=== PATIENT | male | born 1950 | race Caucasian/White ===

== ENCOUNTER 2018-02-02 06:52 | Inpatient (IN) | payer MEDICARE, BC ==
[~2018-02-02] VITALS: Ht 180.3 cm; Wt 93.3 kg
[~2018-02-02 06:52] MED LIST: BACL10TA PO; CARV6.2551 PO; DICL-176 PO; DIGO0.1262 PO; GLIP-116 PO; METF-929 PO; RIVA20TA PO
[2018-02-02] MEDS ORDERED: ceFAZolin 1GM 2 GM in D5W 5% 100 ML IV ONE (07:15)
[2018-02-02] MEDS ORDERED: ACETAMINOPHEN IV 1000 MG/100ML (10MG/ML) IV ONE (07:15)
[2018-02-02] MEDS ORDERED: CELECOXIB 100 MG CAP PO ONE (07:15)
[2018-02-02] MEDS ORDERED: PREGABALIN CAPSULE 75 MG CAP PO ONE (07:15)
[2018-02-02] MEDS ORDERED: ceFAZolin 1GM/50ML 100 ML IV ONE (07:42)
[2018-02-02] MEDS ORDERED: BUPIVACAINE HCL 0.25% P/F 10 ML VIAL ONE (09:03)
[2018-02-02] MEDS ORDERED: TRANEXAMIC ACID 10 ML ONE ×2 (09:03→11:06)
[2018-02-02] MEDS ORDERED: MORPHINE SULF(PF) 0.5MG/ML 10ML VIAL ONE ×2 (09:04→09:17)
[2018-02-02] MEDS ORDERED: KETOROLAC TROMETH 30 MG/ML 1ML VIAL ONE (09:06)
[2018-02-02] MEDS ORDERED: VANCOMYCIN HCL 1000 MG VL ONE (09:07)
[2018-02-02] MEDS ORDERED: TETRACAINE 1% INJ 2 ML VIAL IJ ONE (09:16)
[2018-02-02] MEDS ORDERED: fentaNYL CITRATE 100 MCG/2 ML VL ONE (09:17)
[2018-02-02] MEDS ORDERED: MIDAZOLAM HCL 1MG/1ML-2 ML VIAL ONE (09:18)
[2018-02-02] MEDS ORDERED: ROPIVACAINE 0.5% (5MG/ML) 20ML AMPULE IJ ONE (11:27)
[2018-02-02] MEDS ORDERED: LIDOCAINE W/ EPINEPHRINE 2% INJ 20ML VIAL ONE (11:27)
[2018-02-02] MEDS ORDERED: ONDANSETRON HCL 4 MG/2 ML VIAL IV PRN (12:00)
[2018-02-02] MEDS ORDERED: ACETAMINOPHEN 325 MG TAB PO PRN (12:00)
[2018-02-02] MEDS ORDERED: hydrALAZINE HCL 20 MG/ML VL IV PRN (12:00)
[2018-02-02] MEDS ORDERED: NALOXONE HCL 0.4 MG/ML VIAL IV PRN (12:00)
[2018-02-02] MEDS ORDERED: OXYCODONE W/ ACETAMINOPHEN 5/325MG TABLET PO PRN (12:00)
[2018-02-02] MEDS ORDERED: BISACODYL 5 MG EC TAB PO PRN (12:00)
[2018-02-02] MEDS ORDERED: traMADol HCL 50 MG TAB PO PRN (12:00)
[2018-02-02] MEDS ORDERED: MORPHINE SULF INJ 2 MG/ML SYRINGE 1ML IV PRN (12:00)
[2018-02-02] MEDS ORDERED: diphenhdrAMINE HCL 50 MG/1 ML VL IV PRN (12:00)
[2018-02-02] MEDS ORDERED: ONDANSETRON HCL 4 MG/2 ML VIAL IV ONE (12:00)
[2018-02-02] MEDS ORDERED: MORPHINE SULFATE 4 MG/ML SYR/VIAL IV PRN (12:00)
[2018-02-02] MEDS ORDERED: ePHEDrine SULFATE 50 MG/ML AMP IV PRN (12:00)
[2018-02-02] MEDS ORDERED: NITROGLYCERIN 0.4 MG SL TAB SL PRN (12:00)
[2018-02-02] MEDS ORDERED: DEXTROSE (50%) 50ML SYRG IV PRN (12:00)
[2018-02-02] MEDS: KETOROLAC TROMETH 30 MG/ML 1ML VIAL IV SCH ×2 (14:00→21:20)
[2018-02-02] MEDS: BACLOFEN 10 MG TAB PO SCH ×2 (14:00→21:22)
[2018-02-02] MEDS: LACTATED RINGER'S 1,000 ML IV SCH ×2 (14:19→21:59)
[2018-02-02] MEDS: SODIUM CHLOR 0.9% PF (SALINE LOCK) 10ML VIAL/SYR IV SCH ×2 (14:20→23:12)
[2018-02-02 14:21] VITALS: BP 110/71
[2018-02-02] MEDS: ONDANSETRON HCL 4 MG/2 ML VIAL IV PRN ×2 (14:26→21:19)
[2018-02-02 17:00] VITALS: BP 123/70
[2018-02-02] MEDS ORDERED: ACCU-CHEK COMFORT CURVE STRIP VI SCH (17:00)
[2018-02-02] MEDS: ACCU-CHEK COMFORT CURVE STRIP VI SCH ×2 (17:27→23:15)
[2018-02-02] MEDS: ceFAZolin 1GM 2 GM in D5W 5% 100 ML IV SCH ×2 (17:52→23:16)
[2018-02-02] MEDS: RIVAROXABAN 20 MG TAB PO SCH (17:52)
[2018-02-02] MEDS: glipiZIDE 5 MG TAB PO SCH (17:52)
[2018-02-02] MEDS: InsuLIN REG 1unit/0.01ml Soln (100units/ml) SC SCH ×2 (17:52→23:15)
[2018-02-02 20:00] VITALS: BP 127/79
[2018-02-02] MEDS: DOCUSATE SOD 100 MG CAP PO SCH (21:21)
[2018-02-02] MEDS: CARVEDILOL 3.125 MG TAB PO SCH (21:21)
[2018-02-02] MEDS: DIGOXIN 0.125 MG TAB PO SCH (21:22)
[2018-02-02] MEDS: metFORMIN HYDROCHLORIDE 500 MG TAB PO SCH (21:23)
[2018-02-02] MEDS ORDERED: PATIENTS OWN MEDICATION (Glipizide 10 MG) PO SCH (22:00)
[2018-02-02] MEDS ORDERED: METFORMIN HCL 1000 MG PO SCH (22:00)
[2018-02-02] MEDS ORDERED: PATIENTS OWN MEDICATION (Carvedilol 6.25 MG) PO SCH (22:00)
[2018-02-02 22:14] VITALS: BP 127/79
[2018-02-02] MEDS: oxyCODONE ER 10 MG TAB PO SCH ×2 (23:15→23:21)
[2018-02-03] VITALS (7 sets, daily range): BP systolic 85–125; BP diastolic 54–86
[2018-02-03] MEDS: ONDANSETRON HCL 4 MG/2 ML VIAL IV PRN (05:22)
[2018-02-03] MEDS: glipiZIDE 5 MG TAB PO SCH ×2 (06:21→17:35)
[2018-02-03] MEDS: BACLOFEN 10 MG TAB PO SCH ×3 (06:21→21:42)
[2018-02-03] MEDS: KETOROLAC TROMETH 30 MG/ML 1ML VIAL IV SCH ×3 (06:21→21:41)
[2018-02-03] MEDS: SODIUM CHLOR 0.9% PF (SALINE LOCK) 10ML VIAL/SYR IV SCH ×3 (06:31→22:27)
[2018-02-03] MEDS: InsuLIN REG 1unit/0.01ml Soln (100units/ml) SC SCH ×4 (06:31→22:28)
[2018-02-03] MEDS: ACCU-CHEK COMFORT CURVE STRIP VI SCH ×4 (06:32→22:28)
[2018-02-03 07:24] LABS: Hemoglobin 13.6 g/dL (13.5-17.5)
[2018-02-03 07:41] LABS: Albumin 3.5 g/dL (3.4-5.0); BUN/Creatinine Ratio 26.8; Calcium 7.9 mg/dL (8.5-10.1); Potassium 4.3 mmol/L (3.5-5.1); Total Protein 6.7 g/dL (6.4-8.2)
[2018-02-03] MEDS: ceFAZolin 1GM 2 GM in D5W 5% 100 ML IV SCH (07:45)
[2018-02-03] MEDS: LACTATED RINGER'S 1,000 ML IV SCH ×2 (07:46→18:43)
[2018-02-03] MEDS: DOCUSATE SOD 100 MG CAP PO SCH ×2 (09:27→21:42)
[2018-02-03] MEDS: oxyCODONE ER 10 MG TAB PO SCH ×2 (09:27→21:43)
[2018-02-03] MEDS: metFORMIN HYDROCHLORIDE 500 MG TAB PO SCH ×2 (09:27→21:42)
[2018-02-03] MEDS ORDERED: PATIENTS OWN MEDICATION (Rivaroxaban (Xarelto) 1 TAB) PO SCH (10:00)
[2018-02-03] MEDS: MORPHINE SULFATE 4 MG/ML SYR/VIAL IV PRN ×2 (11:40→23:34)
[2018-02-03] MEDS: RIVAROXABAN 20 MG TAB PO SCH (18:43)
[2018-02-03] MEDS: CARVEDILOL 3.125 MG TAB PO SCH (18:54)
[2018-02-03] MEDS: DIGOXIN 0.125 MG TAB PO SCH (20:33)
[2018-02-04] MEDS: LACTATED RINGER'S 1,000 ML IV SCH ×3 (04:51→21:10)
[2018-02-04 05:00] VITALS: BP 104/70
[2018-02-04] MEDS: KETOROLAC TROMETH 30 MG/ML 1ML VIAL IV SCH (05:21)
[2018-02-04] MEDS: SODIUM CHLOR 0.9% PF (SALINE LOCK) 10ML VIAL/SYR IV SCH ×3 (05:23→20:20)
[2018-02-04] MEDS: BACLOFEN 10 MG TAB PO SCH ×3 (05:23→21:52)
[2018-02-04] MEDS: glipiZIDE 5 MG TAB PO SCH ×2 (06:24→17:56)
[2018-02-04] MEDS: InsuLIN REG 1unit/0.01ml Soln (100units/ml) SC SCH ×4 (06:24→21:52)
[2018-02-04] MEDS: ACCU-CHEK COMFORT CURVE STRIP VI SCH ×4 (06:24→21:52)
[2018-02-04 07:52] VITALS: BP 122/70
[2018-02-04 08:00] VITALS: BP 122/70
[2018-02-04 08:23] LABS: Hematocrit 37.6 % (41.0-53.0)
[2018-02-04] MEDS: metFORMIN HYDROCHLORIDE 500 MG TAB PO SCH ×2 (10:00→17:55)
[2018-02-04] MEDS: oxyCODONE ER 10 MG TAB PO SCH ×2 (10:12→21:52)
[2018-02-04] MEDS: DOCUSATE SOD 100 MG CAP PO SCH ×2 (10:12→21:51)
[2018-02-04 12:40] VITALS: BP 110/58
[2018-02-04] MEDS: OXYCODONE W/ ACETAMINOPHEN 5/325MG TABLET PO PRN (14:13)
[2018-02-04 17:30] VITALS: BP 128/44
[2018-02-04] MEDS: CARVEDILOL 3.125 MG TAB PO SCH (20:20)
[2018-02-04] MEDS: DIGOXIN 0.125 MG TAB PO SCH (20:21)
[2018-02-04] MEDS: RIVAROXABAN 20 MG TAB PO SCH (20:23)
[2018-02-04 21:30] VITALS: BP 123/85
[2018-02-05] MEDS: MORPHINE SULFATE 4 MG/ML SYR/VIAL IV PRN (01:14)
[2018-02-05] MEDS ORDERED: CARVEDILOL 3.125 MG TAB PO ONE (04:15)
[2018-02-05 05:00] VITALS: BP 115/75
[2018-02-05] MEDS: InsuLIN REG 1unit/0.01ml Soln (100units/ml) SC SCH ×2 (06:17→11:30)
[2018-02-05] MEDS: ACCU-CHEK COMFORT CURVE STRIP VI SCH ×2 (06:17→11:49)
[2018-02-05] MEDS: SODIUM CHLOR 0.9% PF (SALINE LOCK) 10ML VIAL/SYR IV SCH (06:17)
[2018-02-05] MEDS: metFORMIN HYDROCHLORIDE 500 MG TAB PO SCH (06:17)
[2018-02-05] MEDS: BACLOFEN 10 MG TAB PO SCH ×2 (06:17→14:39)
[2018-02-05] MEDS: glipiZIDE 5 MG TAB PO SCH (06:17)
[2018-02-05] MEDS: OXYCODONE W/ ACETAMINOPHEN 5/325MG TABLET PO PRN ×2 (06:18→10:07)
[2018-02-05 08:00] VITALS: BP 113/61
[2018-02-05 08:11] VITALS: BP 113/61
[2018-02-05 08:16] VITALS: BP 115/79
[2018-02-05 08:17] LABS: Hematocrit 36.7 % (41.0-53.0); Hemoglobin 12.5 g/dL (13.5-17.5)
[2018-02-05] MEDS: LACTATED RINGER'S 1,000 ML IV SCH (09:59)
[2018-02-05] MEDS: oxyCODONE ER 10 MG TAB PO SCH (10:02)
[2018-02-05] MEDS: DOCUSATE SOD 100 MG CAP PO SCH (10:03)
[2018-02-05 12:44] VITALS: BP 129/82
== END 2018-02-05 16:00 | disposition home health service (06) | DRG 470 ==
LOC: SUR 06:52 → TELE-CENTR 06:53
PROVIDERS: ADMIT Orthopaedic Surgery Adult Reconstructive Orthopaedic Surgery; ATTEND Orthopaedic Surgery Adult Reconstructive Orthopaedic Surgery
PROC: 8E0YXBZ Computer Assisted Procedure of Lower Extremity (ICD-10-PCS; 2018-02-02)
PROC: 0SRC0J9 Replacement of Right Knee Joint with Synthetic Substitute, Cemented, Open Approach (ICD-10-PCS; principal; 2018-02-02 09:13)
DX: M17.11 Unilateral primary osteoarthritis, right knee (principal); I42.9 Cardiomyopathy, unspecified; I48.92 Unspecified atrial flutter; I10 Essential (primary) hypertension; E11.9 Type 2 diabetes mellitus without complications; I34.0 Nonrheumatic mitral (valve) insufficiency; I48.0 Paroxysmal atrial fibrillation; Z96.651 Presence of right artificial knee joint; Z92.21 Personal history of antineoplastic chemotherapy
CPT/HCPCS: 36415; 73562; 80053; 82962; 85014; 85018; 97110; 97116; 97163; C1713; J0131; J0690; J1815; J1885; J2250; J2405; J3490; J7060